=== PATIENT | male | born 1965 | race Caucasian/White ===

== ENCOUNTER 2025-02-07 19:30 | Emergency (ER) | payer MEDICARE, MEDICAID ==
[2025-02-07 19:53] LABS: MEAN PLATELET VOLUME 6.9 FL (7.4-10.4); RED CELL DISTRIBUTION WIDTH 14.8 % (11.5-14.5)
--- NOTE | 2025-02-07 19:59 | RADIOLOGY REPORT ---
CLINICAL HISTORY: CP TECHNIQUE: Single view of the chest was obtained. COMPARISON: None FINDINGS: The heart size and pulmonary vasculature are normal. There is mild right basilar linear atelactasis. IMPRESSION: NO ACUTE CARDIOPULMONARY PROCESS.
[2025-02-07 20:16] LABS: CREATININE 1.10 MG/DL (0.60-1.10); PRO BRAIN NATRIURETIC PEPTIDE 125 PG/ML (0-125); TOTAL CARBON DIOXIDE 35.3 MMOL/L (24-32); eGFR 68 ML/MIN
--- NOTE | 2025-02-07 21:02 | Physician Documentation ---
History of Present Illness ~ Chief Complaint: Chest Wall Pain Stated Complaint: SOB Time Seen by MD: 20:57 HPI This is a 59-year-old male that presents to the emergency department for evaluation of chest pain that presents when he pushes on his chest between his ribs for approximately the last 6 months. Reports that he spends a lot of time sitting in his wheelchair sometimes in awkward positions that could be contributing to his pain. Patient denies substernal chest pain palpitations shortness of breath. He is not diaphoretic nor does he look uncomfortable at this time. Patient reports that the pain is reproducible and pushes on the areas between the ribs. Other concerns reported at this time. Active Prescriptions See Medication Reconciliation Form. Review of Systems ROS As stated above in the HPI, otherwise all systems are reviewed and negative. Physical Exam Vital Signs: Temperature: 98.3, Source: Oral, Heart Rate: 70, Respiratory Rate: 16, BP: 115/63, Pulse Oximetry: 95 Oxygen Flow Rate: 0 Physical Exam VITALS: Reviewed and as above. GENERAL: Alert, no apparent distress. HEENT: Normocephalic, atraumatic, PERRL, EOMI, dry mucosa, no erythema RESPIRATORY: Lungs clear, normal breath sounds, no respiratory distress. CHEST: No accessory muscle use, no retractions CV: Regular rate, rhythm, no edema, no murmur, No: JVD GI: Soft, non-tender, bowels sounds present, no rebound, guarding, or rigidity BACK: No CVA tenderness, or swelling MUSCULOSKELETAL No deformities, no edema, palpation to the ribs and intercostal spaces SKIN: Warm and dry, no rash NEURO: Oriented x4, No motor or sensory deficit PSYCH: Normal mood and affect, no agitation Progress Results/Orders Results/Orders Vital Signs 02/07/25 19:32 Temp 98.3 Pulse 70 Resp 16 B/P (MAP) 115/63 Pulse Ox 95 O2 Flow Rate 0 Laboratory Tests Test 02/07/25 19:43 White Blood Count 7.6 Red Blood Count 4.79 Hemoglobin 15.2 Hematocrit 44.0 Mean Corpuscular Volume 91.8 Mean Corpuscular Hemoglobin 31.6 H Mean Corpuscular Hemoglobin Concent 34.5 Red Cell Distribution Width 14.8 H Platelet Count 348 Mean Platelet Volume 6.9 L Neutrophils (%) (Auto) 55.0 Lymphocytes (%) (Auto) 35.3 Monocytes (%) (Auto) 7.7 Eosinophils (%) (Auto) 1.4 Basophils (%) (Auto) 0.6 Neutrophils # (Auto) 4.2 Lymphocytes # (Auto) 2.7 Monocytes # (Auto) 0.6 Eosinophils # (Auto) 0.1 Basophils # (Auto) 0.0 CBC Comment Sodium Level 142 Potassium Level 3.9 Chloride Level 101 Carbon Dioxide Level 35.3 H Anion Gap 6 L Blood Urea Nitrogen 17 Creatinine 1.10 Estimated GFR/1.73 m2 68 BUN/Creatinine Ratio 15.5 Glucose Level 125 H Calcium Level 8.9 Troponin I High Sensitivity 5 Pro-B-Type Natriuretic Peptide 125 Albumin 3.2 L Chemistry Comments Medical Decision Making Findings Exam without evidence of volume overload so doubt heart failure. EKG without signs of active ischemia. Given the timing of pain to ER presentation, single troponin was patient so doubt NSTEMI. Presentation not consistent with acute PE ,pneumothorax (not visualized on chest xr), thoracic aortic dissection, pericarditis, tamponade, pneumonia (no infectious symptoms, clear chest xr), myocarditis (no recent illness, neg trop).so plan to discharge patient home with symptoms consistent with costochondritis at this time. Patient will follow up with primary care provider. Patient will return to the emergency department if he has any worsening of his current symptoms or any additional concerning symptoms that we discussed here today i.e. chest pain palpitations shortness of breath nausea vomiting diaphoresis or any other concerning symptoms. Differential Dx:Considerations: Include: Chest wall contusion, Flail chest, Myocardial contusion, Pneumothorax, Pulmonary contusion, Rib fracture, Renal contusion, Splenic fracture, Tension pneumothorax, Other Departure Disposition: 01 HOME / SELF CARE / HOMELESS Impression: Primary Impression: Chest wall pain Additional Impression: Costochondritis Additional Instructions: Exam without evidence of volume overload so doubt heart failure. EKG without signs of active ischemia. Given the timing of pain to ER presentation, single troponin was patient so doubt NSTEMI. Presentation not consistent with acute PE ,pneumothorax (not visualized on chest xr), thoracic aortic dissection, pericarditis, tamponade, pneumonia (no infectious symptoms, clear chest xr), myocarditis (no recent illness, neg trop).so plan to discharge patient home with symptoms consistent with costochondritis at this time. Patient will follow up with primary care provider. Patient will return to the emergency department if he has any worsening of his current symptoms or any additional concerning symptoms that we discussed here today i.e. chest pain palpitations shortness of breath nausea vomiting diaphoresis or any other concerning symptoms. Referrals: NO PRIMARY CARE PROVIDER (PCP) Education Educated: Patient Educated regarding: diagnosis, treatment, prognosis, need for follow up Signature Scribe Signature: A Attestation: Scribed for Emergency,Department by JOAQUÍN Porter . 02/07/25 21:04 ALISHA ALMAGUER Feb 07, 2025 21:02
[2025-02-07 22:51] VITALS: BP 104/74; PULSE 64; RESP 16; TEMP 97.7; O2SAT 96
--- NOTE | 2025-02-08 08:20 | ELECTROCARDIOGRAPH REPORT ---
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
== END 2025-02-07 21:14 | disposition home or self-care (01) ==
LOC: ER 19:31
DX: R07.89 Other chest pain (principal); M94.0 Chondrocostal junction syndrome [Tietze]; R06.02 Shortness of breath; Z79.899 Other long term (current) drug therapy
CPT/HCPCS: 36415; 71045; 80048; 83880; 84484; 85025; 93005; 99285